=== PATIENT | female | born 1990 | race Two or more races ===

== ENCOUNTER 2021-11-12 09:32 | Outpatient (CLI) | payer OTHER | END 2021-11-12 09:45 | disposition home or self-care (01) | LOC: RX STUDY 09:32 | DX: N94.0 Mittelschmerz (principal) ==

== ENCOUNTER 2023-09-11 13:24 | Outpatient (CLI) | payer OTHER | END 2023-09-11 13:26 | disposition home or self-care (01) | LOC: PRENATAL 13:24 | PROVIDERS: ATTEND Obstetrics & Gynecology Maternal & Fetal Medicine | DX: O35.9XX0 Maternal care for (suspected) fetal abnormality and damage, unspecified, not applicable or unspecified (principal); O35.3XX0 Maternal care for (suspected) damage to fetus from viral disease in mother, not applicable or unspecified; O44.02 Complete placenta previa NOS or without hemorrhage, second trimester; Z3A.20 20 weeks gestation of pregnancy ==

== ENCOUNTER 2023-12-04 12:54 | Outpatient (CLI) | payer OTHER | END 2023-12-04 12:55 | disposition home or self-care (01) | LOC: PRENATAL 12:54 | PROVIDERS: ATTEND Obstetrics & Gynecology Maternal & Fetal Medicine | DX: O26.849 Uterine size-date discrepancy, unspecified trimester (principal); O36.8199 Decreased fetal movements, unspecified trimester, other fetus; Z3A.32 32 weeks gestation of pregnancy ==

== ENCOUNTER 2024-01-27 14:31 | Inpatient (IN) | payer OTHER ==
[~2024-01-27] VITALS: Ht 157.5 cm; Wt 74.8 kg
[2024-01-27 14:23] VITALS: BP 130/64
[2024-01-27] MEDS ORDERED: RINGERS SOLUTION,LACTATED 1,000 ML IV SCH (14:45)
[2024-01-27] MEDS ORDERED: PRENATABS RX T1 EACH PO (14:51)
[2024-01-27 15:20] VITALS: BP 113/47
[2024-01-27 15:38] LABS: PH,URINE 5.5 (5.0-8.0); URINE APPEARANCE Cloudy; URINE BILIRRUBIN Negative (NEGATIVE); URINE BLOOD Large; URINE COLOR Yellow; URINE KETONE Trace (NEGATIVE); URINE LEUKOCYTE Moderate; URINE NITRATE Negative
[2024-01-27 15:42] LABS: URINE BACTERIA 551.8 uL (0.0-1933); URINE EPITHELIAL CELLS 18.5 uL (0.0-38.8); URINE RBC 1056.1 uL (0.0-20.8); URINE WBC 656.7 uL (0.0-23.2)
[2024-01-27 15:53] LABS: URINE CAST 0.45 uL (0.0-1.40); URINE GLUCOSE 500 MG/DL (NEGATIVE); URINE PROTEIN 300 (NEGATIVE)
[2024-01-27 15:58] LABS: HEMATOCRIT 36.6 % (36.0-45.00); HEMOGLOBIN 11.9 g/dL (12.0-15.00); MEAN CELL VOLUME 91.3 fL (80.00-100.00); MEAN CORPUSCULAR HEMOGLOBIN 29.6 pg (27.00-32.0); MEAN CORPUSCULAR HGB CONC 32.4 g/dl (32.0-36.0); PLATELET COUNT 144 K/uL (150-450); RED BLOOD COUNT 4.01 M/uL (4.00-6.00); RED CELL DISTRIBUTION WIDTH 17.9 % (11.5-14.5)
[2024-01-27 16:07] LABS: INR 0.94; PARTIAL THROMBOPLASTIN TIME 29.3 SECONDS (22.0-34.0); PROTHROMBIN TIME 10.3 SECONDS (9.0-11.5)
[2024-01-27 16:15] LABS: ALBUMIN 2.4 gm/dL (3.4-5.0); BILIRUBIN TOTAL 0.48 mg/dL (0.3-1.2); CALCIUM 8.1 mg/dL (8.5-10.1); CREATININE SERUM 0.76 mg/dL (0.55-1.02); GFR 88.19; GLOBULINA 3.7 G/DL (2.4-3.5); POTASSIUM 3.81 mEq/L (3.5-5.1); TOTAL PROTEIN 6.1 gm/dL (6.4-8.2)
[2024-01-27] MEDS ORDERED: PROMETHAZINE HCL 25 MG/ML AMPUL IV STA (16:15)
[2024-01-27] MEDS ORDERED: MEPERIDINE HCL/PF 50 MG/ML VIAL IV STA (16:15)
[2024-01-27 20:39] VITALS: BP 142/72
[2024-01-27 22:02] VITALS: BP 108/59
[2024-01-27 22:16] VITALS: BP 121/50
[2024-01-27] MEDS ORDERED: BENZOCAINE/MENTHOL 90 ML BOTTLE TOP PRN (23:00)
[2024-01-27] MEDS ORDERED: LIDOCAINE HCL 1% 10ML VIAL IJ ONE (23:00)
[2024-01-27] MEDS ORDERED: ERYTHROMYCIN BASE OPHT 1GM EACH TUBE OP ONE (23:00)
[2024-01-27] MEDS ORDERED: OXYTOCIN 1,000 ML IV SCH (23:00)
[2024-01-27] MEDS ORDERED: ACETAMINOPHEN 500 MG GEL..CAP PO PRN (23:00)
[2024-01-27] MEDS ORDERED: CHLORHEXIDINE GLUCONATE 120 ML BOTTLE TOP SCH (23:00)
[2024-01-27] MEDS ORDERED: OXYTOCIN 10 UNITS/ML VIAL IV ONE (23:00)
[2024-01-28 01:57] VITALS: BP 123/62
[2024-01-28 08:00] VITALS: BP 106/69
[2024-01-28] MEDS ORDERED: PNV,CALCIUM 72/IRON/FOLIC ACID 1 TAB TABLET PO SCH (09:00)
[2024-01-28 10:44] LABS: HEMATOCRIT 31.6 % (36.0-45.00); HEMOGLOBIN 10.6 g/dL (12.0-15.00); MEAN CORPUSCULAR HEMOGLOBIN 30.2 pg (27.00-32.0); MEAN CORPUSCULAR HGB CONC 33.6 g/dl (32.0-36.0); PLATELET COUNT 178 K/uL (150-450); RED BLOOD COUNT 3.51 M/uL (4.00-6.00)
[2024-01-28 17:00] VITALS: BP 106/73
[2024-01-29 00:24] VITALS: BP 97/58
[2024-01-29 08:00] VITALS: BP 107/70
== END 2024-01-29 18:46 | disposition home or self-care (01) | DRG 807 ==
LOC: LDR 14:31 → OB/GYN 14:31
PROVIDERS: Obstetrics & Gynecology; ADMIT Obstetrics & Gynecology; ATTEND Obstetrics & Gynecology
PROC: 10E0XZZ Delivery of Products of Conception, External Approach (ICD-10-PCS; principal; 2024-01-27)
PROC: 0W8NXZZ Division of Female Perineum, External Approach (ICD-10-PCS; 2024-01-27)
PROC: 4A1HXCZ Monitoring of Products of Conception, Cardiac Rate, External Approach (ICD-10-PCS; 2024-01-27)
DX: O80 Encounter for full-term uncomplicated delivery (principal); Z37.0 Single live birth; Z3A.39 39 weeks gestation of pregnancy; Z20.822 Contact with and (suspected) exposure to COVID-19